=== PATIENT | female | born 2000 | race African-American/Black ===

== ENCOUNTER 2021-09-02 13:14 | Inpatient (IN) ==
[2021-09-02] MEDS ORDERED: ONDANSETRON 4 MG/2 ML VIAL IV PRN (13:54)
[2021-09-02] MEDS ORDERED: LACTATED RINGERS 1,000 ML IV ONE (13:54)
[2021-09-02] MEDS ORDERED: LACTATED RINGERS 1,000 ML IV SCH (14:00)
[2021-09-02 14:18] LABS: Basophils % 0.3 % (0.0-0.8); Eosinophils % 0.6 % (0.00-10.9); Hematocrit 37.3 VOL% (35.7-47.0); Hemoglobin 12.1 GM/DL (12.0-16.0); Immature Granulocytes % 0.3 %; Immature Granulocytes Absolute 0.02 #; Lymphocytes # 2.8 10*3/uL (1.4-4.0); Lymphocytes % 44.1 % (21.3-54.2); Mean Corpuscular HGB Conc 32.4 GM/DL (32-36); Mean Corpuscular Volume 82.2 FL (87-102); Neutrophils % 42.7 % (38.7-73.9); Platelet Count 206 T/CUMM (130-400); Red Blood Count 4.54 MC/CUMM (3.8-5.5); Red Cell Distribution Width 13.6 % (9.3-17.3); White Blood Count 6.3 T/CUMM (4-12)
[2021-09-02 14:32] LABS: INR 0.9; PT Patient Result 9.7 SECS (10.5-12.0); Partial Thromboplastin Time 25.9 SECS (23.8-32.1)
[2021-09-02 14:34] LABS: Alanine Aminotransferase 16 U/L (13-56); Albumin 2.2 G/DL (3.4-5.0); Alkaline Phosphatase 240 U/L (45-117); Aspartate Amino Transferase 15 U/L (0-37); Bilirubin,Total < 0.39 MG/DL (0.20-1.00); Blood Urea Nitrogen 11 MG/DL (7-18); Calcium 9.1 MG/DL (8.5-10.1); Carbon Dioxide 22 MMOL/L (21-32); Estimated Glom Filtration Rate 186 ML/MIN; Glucose 117 MG/DL (74-106); Osmolality,Calculated 269.1 MOS/KG (273-304); Sodium 135 MMOL/L (136-145); Total Protein 6.7 G/DL (6.4-8.2)
[2021-09-02 22:47] LABS: Protein/Creatinine Ratio,Urine 0.5 RATIO
[2021-09-03] MEDS ORDERED: CITRIC ACID/SODIUM CITRATE 30 ML UDCUP PO ONE (06:00)
[2021-09-03] MEDS ORDERED: FAMOTIDINE 20 MG/2 ML VIAL IV ONE (06:00)
[2021-09-03] MEDS ORDERED: OXYTOCIN 10 UNIT/ML VIAL IM ONE (06:00)
[2021-09-03] MEDS ORDERED: OXYTOCIN/LR 30 UNIT/1,000 ML BAG IV ONE (06:00)
[2021-09-03] MEDS ORDERED: ceFAZolin 3,000 MG in SYRINGE 1 EACH IV ONE (06:00)
[2021-09-03] MEDS ORDERED: ONDANSETRON 4 MG/2 ML VIAL ONE (06:52)
[2021-09-03] MEDS ORDERED: PHENYLEPHRINE 1 MG/10 ML SYRINGE IV ONE (06:52)
[2021-09-03] MEDS ORDERED: BUPIVACAINE SPINAL 0.75% 2 ML AMP SPINAL ONE (06:52)
[2021-09-03] MEDS ORDERED: LABETALOL 200 MG TABLET PO SCH (09:00)
[2021-09-03 09:14] LABS: Cord Arterial Blood HCO3 19.3 MMOL/L
[2021-09-03 09:15] LABS: Cord Venous Blood HCO3 24.3 MMOL/L; Cord Venous Blood PCO2 59.1 MMHG; Cord Venous Blood PO2 < 19.0 MMHG
[2021-09-03 09:22] LABS: Bacteria,Urine Occasional /HPF (Few); Bilirubin,Urine Negative (Negative); Blood, Urine Negative (Negative); Glucose,Urine (UA) Negative (Negative); Ketones,Urine Negative (Negative); Mucus,Urine Many /LPF (Occasional); Nitrite,Urine Negative (Negative); Protein,Urine 100 MG/DL; RBC,Urine <1 /HPF (0-4); Squamous Epithelial Cell,Urine Occasional /HPF (0-10); Urine Appearance CLEAR (Clear); Urine Color Yellow (Yellow); Urine Urobilinogen < 2.0 EU/DL (0.2-1.0)
[2021-09-03] MEDS ORDERED: KETOROLAC 30 MG/1 ML VIAL ONE (09:29)
[2021-09-03] MEDS ORDERED: ACETAMINOPHEN INJ 1,000 MG/100 ML VIAL IV ONE (09:29)
[2021-09-03] MEDS ORDERED: OXYTOCIN/LR 20 UNIT/1,000 ML BAG IV ONE (09:43)
[2021-09-03] MEDS ORDERED: RHO(D) IMMUNE GLOBULIN 300 MCG SYRINGE IM ONE (09:43)
[2021-09-03] MEDS ORDERED: ACETAMINOPHEN 325 MG TABLET PO PRN (09:43)
[2021-09-03] MEDS ORDERED: ONDANSETRON 4 MG/2 ML VIAL IV PRN (09:43)
[2021-09-03] MEDS ORDERED: SIMETHICONE CHEW 80 MG TABLET PO PRN (09:43)
[2021-09-03] MEDS ORDERED: LACTATED RINGERS 1,000 ML IV SCH (10:00)
[2021-09-03] MEDS: ACETAMINOPHEN 500 MG TABLET PO SCH ×2 (14:48→21:20)
[2021-09-03] MEDS ORDERED: diphenhydrAMINE 50 MG/1 ML VIAL ONE (14:49)
[2021-09-03] MEDS: KETOROLAC 30 MG/1 ML VIAL IV SCH ×2 (14:49→21:19)
[2021-09-03] MEDS ORDERED: diphenhydrAMINE 50 MG/1 ML VIAL IV PRN (14:50)
[2021-09-03 17:12] LABS: Basophils % 0.3 % (0.0-0.8); Eosinophils % 0.3 % (0.00-10.9); Hematocrit 34.6 VOL% (35.7-47.0); Immature Granulocytes % 0.4 %; Immature Granulocytes Absolute 0.04 #; Lymphocytes % 28.4 % (21.3-54.2); Mean Corpuscular HGB Conc 31.8 GM/DL (32-36); Mean Corpuscular Volume 82.8 FL (87-102); Mean Platelet Volume 12.1 FL (9.6-12.0); Monocytes % 8.9 % (1.7-12.7); Neutrophils % 61.7 % (38.7-73.9); Platelet Count 190 T/CUMM (130-400); Red Blood Count 4.18 MC/CUMM (3.8-5.5); Red Cell Distribution Width 13.7 % (9.3-17.3); White Blood Count 10.7 T/CUMM (4-12)
[2021-09-03] MEDS: DOCUSATE SODIUM 100 MG CAPSULE PO SCH (21:30)
[2021-09-04] MEDS: KETOROLAC 30 MG/1 ML VIAL IV SCH (03:26)
[2021-09-04] MEDS: ACETAMINOPHEN 500 MG TABLET PO SCH (03:27)
[2021-09-04 06:35] LABS: Basophils % 0.4 % (0.0-0.8); Eosinophils # 0.1 10*3/uL (0.0-0.87); Eosinophils % 0.8 % (0.00-10.9); Hematocrit 32.3 VOL% (35.7-47.0); Hemoglobin 10.2 GM/DL (12.0-16.0); Immature Granulocytes % 0.5 %; Immature Granulocytes Absolute 0.04 #; Lymphocytes # 2.7 10*3/uL (1.4-4.0); Lymphocytes % 33.9 % (21.3-54.2); Mean Corpuscular HGB Conc 31.6 GM/DL (32-36); Mean Corpuscular Volume 84.6 FL (87-102); Mean Platelet Volume 11.8 FL (9.6-12.0); Monocytes % 11.5 % (1.7-12.7); Neutrophils % 52.9 % (38.7-73.9); Platelet Count 167 T/CUMM (130-400); Red Blood Count 3.82 MC/CUMM (3.8-5.5); Red Cell Distribution Width 14.1 % (9.3-17.3)
[2021-09-04] MEDS: MULTIVITAMIN (PRENATAL) TABLET PO SCH (08:24)
[2021-09-04] MEDS: DOCUSATE SODIUM 100 MG CAPSULE PO SCH ×2 (08:24→21:36)
[2021-09-04] MEDS: METOCLOPRAMIDE 10 MG TABLET PO SCH ×2 (08:24→17:18)
[2021-09-04] MEDS: IBUPROFEN 800 MG TABLET PO PRN (14:03)
[2021-09-04] MEDS: MAGNESIUM HYDROXIDE SUSP 30 ML UDCUP PO PRN (21:36)
[2021-09-05] MEDS: METOCLOPRAMIDE 10 MG TABLET PO SCH ×2 (00:11→08:34)
[2021-09-05] MEDS: IBUPROFEN 800 MG TABLET PO PRN (00:12)
[2021-09-05] MEDS: MULTIVITAMIN (PRENATAL) TABLET PO SCH (08:34)
[2021-09-05] MEDS: MAGNESIUM HYDROXIDE SUSP 30 ML UDCUP PO PRN (08:35)
[2021-09-05] MEDS: DOCUSATE SODIUM 100 MG CAPSULE PO SCH (08:35)
[2021-09-05 11:37] VITALS: BP 141/77
== END 2021-09-05 12:45 | disposition home or self-care (01) | DRG 540 ==
LOC: N.LDOUT 13:14 → N.LD 13:17 → N.OB 09-03 12:10
PROVIDERS: ADMIT Obstetrics & Gynecology; ATTEND Obstetrics & Gynecology
PROC: LDCSECT (ICD-10-PCS; 2021-09-03 08:00)